=== PATIENT | female | born 1950 | race Caucasian/White ===

== ENCOUNTER → 2017-07-13 | Outpatient (CLI) | payer MEDICARE, OTHER ==
[~2017-07-13] MED LIST: ALBUTEROL2.5 MG/NEB INH; ALENDRONATE SOD70 M1 PO; AMARYL 2MG TABLE2 MG PO; ASPIRIN 81MG TA81 MG PO; ATENOLOL50 M1 PO; ATENOLOL50 MG PO; ATROVENT H0.017 MG/A IH; CLOBETASOL PROP TP; CLOPIDOGREL75 M2 PO; CYANOCOBAL1000 MCG/M SL; CYCLOBENZAPRINE10 MG PO; DOCUSATE SODIU100 MG PO; EMBREL IM; FOLIC ACID 1MG T1 MG PO; GABAPENTIN 400400 MG PO; GLIMEPIRIDE 4MG4 MG PO; GLIMEPIRIDE1 MG PO; IBUPROFEN600 MG PO; K-DUR 2020 MEQ PO; KLOR-CON M2020 ME1 PO; LASIX20 MG PO; LASIX80 MG PO; MECLIZINE HCL25 M1 PO; MECLIZINE HYDRO25 MG PO; MELOXICAM15 MG PO; METFORMIN 500M500 M1 PO; METFORMIN500 MG PO; METHADONE 10MG10 MG PO; METHOTREXATE2.5 M1 PO; METOLAZONE 2.52.5 MG PO; MIRALAX17 GM/DOSE PO; MORPHINE SULFAT15 M3 PO; NEURONTIN 300M300 MG PO; NORCO 325 MG-101 TAB PO; OMEPRAZOLE40 MG PO; OXYCODONE AND A1 TA5 PO; OXYCONTIN 10MG10 MG PO; OXYCONTIN15 MG PO; PAROXETINE HCL40 MG PO; PAXIL20 MG PO; PERCOCET 10 MG1 EACH PO; PHENERGAN25 M3 PO; PLAVIX75 MG PO; PRILOSEC20 M1 PO; SENNA LAXATIVE8.6 MG PO; SIMVASTATIN40 MG PO; TOPAMAX15 MG; TORADOL10 MG PO; TREXALL5 MG PO; TRIAMCINOL30 GM/TUBE TP; VITAMIN D50000 I1 PO; VOLTAREN100 GM TP; XANAX 1MG TABLET1 MG PO; ZAROXOLYN 2.5M2.5 MG PO; ZOCOR40 MG PO; ZOFRAN4 MG PO
[2017-07-13 16:48] LABS: LYMPH # 2.7 K/mm3 (0.7-4.5); LYMPH % 32.8 % (10-50.0)
[2017-07-13 16:53] LABS: HEMOGLOBIN 12.8 g/dL (12.2-16.2)
[2017-07-13 18:28] LABS: BUN 18 mg/dL (7-18)
[2017-07-13 18:33] LABS: GFR (ESTIMATED) 62 ML/MIN (59-)
== END ==
LOC: LAB 16:35
PROVIDERS: Internal Medicine Adolescent Medicine
DX: E53.8 Deficiency of other specified B group vitamins (principal); M06.9 Rheumatoid arthritis, unspecified; Z79.899 Other long term (current) drug therapy

== ENCOUNTER → 2017-08-04 | Outpatient (CLI) | payer MEDICARE, OTHER ==
--- NOTE | 2017-08-08 14:38 | RADIOLOGY REPORT PS360 ---
DIG MAMM-SCREEN KELLY W/CAD CAD Screening ORDERING PHYSICIAN : Francisco Barlow MD PATIENT AGE: 67 years GENDER: Female COMPARISON: Previous mammograms: May 2011 and August 2014 INDICATION: Routinescreening . No hormones. No new complaints. Noncontributory family history.ient TECHNIQUE: Standard CC and MLO images were obtained. R2 CAD reviewed. Patient had to be done anterior on. Difficulty standing. FINDINGS: Low-density breast with fatty a replacement bilaterally. No dominant mass nor suspicious calcifications no architectural distortion either breast. CAD computer review highlights no areas of concern RIGHT BREAST: Stable right mammogram with no no new areas of concern. Follow-up one year LEFT BREAST:Stable left mammogram with no no new areas concern. Follow-up one year IMPRESSION: Stable bilateral mammogram with no new areas concern. Low-density breast. BI-RADS CATEGORY: 1_Negative RECOMMENDED FOLLOWUP: 12M 12 MONTH FOLLOW-UP (A letter has been sent to the patient regarding results of the study.)
== END ==
LOC: RAD 07-22 16:30
DX: Z12.31 Encounter for screening mammogram for malignant neoplasm of breast (principal)
CPT/HCPCS: G0202

== ENCOUNTER → 2017-09-10 | Outpatient (CLI) | payer MEDICARE, OTHER ==
--- NOTE | 2017-09-13 14:03 | RADIOLOGY REPORT PS360 ---
CHEST(2 VIEWS-NOT PORTABLE) COMPARISON: PA and lateral chest 05/23/2015 HISTORY: Known COPD with exacerbation TECHNIQUE: PA and lateral chest FINDINGS: Slightly better inspiration than on previous 05/23/2015 7 chest film. No focal pneumonia. Pulmonary vascularity is upper normal but improved since prior study.. Cardiac size is normal and the vascularity is upper normal. There is no pleural fluid. Posterior fixation rods are seen at the lower T-spine and continuing to the upper thoracic spine. Multiple threaded Screws are seen bilaterally at multiple levels throughout the lower abdomen singular screws at several levels at lumbar spine. These fixation elements unchanged 2014 There is mild stable old compression deformity at T8, T7 & less evident inferior T6 unchanged 2014.. Marked degenerative disc space narrowing has progressed T6/7 and T7/8 with additional endplate reactive changes at each of these levels. The significant thoracic pain consider CT if desire further evaluate. . With multiple threaded screws at multiple levels in the mid and lower thoracic and upper lumbar spine. IMPRESSION: Stable chest nothing definitely acute. Heart upper normal in size. Posterior fixation lower thoracic spine into lumbar spine. Progressive degenerative disc changes at mid T-spine but since 2015 CXR studies Nonacute chest findings
== END ==
LOC: RAD 12:59
DX: J44.1 Chronic obstructive pulmonary disease with (acute) exacerbation (principal)